=== PATIENT | male | born 2000 | race African-American/Black ===

== ENCOUNTER 2019-02-17 08:27 | Emergency (ER) | payer SELFPAY ==
[~2019-02-17] VITALS: Ht 182.9 cm; Wt 88.5 kg
[2019-02-17 08:30] VITALS: BP 116/65
[2019-02-17] MEDS ORDERED: ACETAMINOPHEN 325 MG TAB PO ONE ×2 (08:34→08:45)
[2019-02-17] MEDS ORDERED: cefTRIAXone SOD 1,000 MG VL IM ONE (09:00)
[2019-02-17] MEDS ORDERED: methylPREDNISolone SOD SUCC 125 MG/2 ML VL IM ONE (09:00)
[2019-02-17] MEDS ORDERED: IBUPROFEN 800 MG TAB PO ONE (09:00)
== END 2019-02-17 09:34 | disposition home or self-care (01) ==
LOC: ER 08:27
DX: J03.00 Acute streptococcal tonsillitis, unspecified (principal)
CPT/HCPCS: 96372; 99283; J0696; J2930

== ENCOUNTER 2019-02-19 01:56 | Emergency (ER) | payer SELFPAY ==
[~2019-02-19] VITALS: Ht 182.9 cm; Wt 88.0 kg
[2019-02-19 02:47] VITALS: BP 127/72
[2019-02-19] MEDS ORDERED: DexAMETHasone SOD PHOS 10MG/1ML VIAL INJ IM ONE (05:00)
[2019-02-19] MEDS ORDERED: HYDROcodone-ACET 7.5/325MG TAB PO ONE (05:00)
== END 2019-02-19 05:29 | disposition home or self-care (01) ==
LOC: ER 01:58
DX: J02.0 Streptococcal pharyngitis (principal)
CPT/HCPCS: 96372; 99283; J1100

== ENCOUNTER 2019-02-21 18:34 | Emergency (ER) | payer SELFPAY ==
[~2019-02-21] VITALS: Ht 182.9 cm; Wt 88.0 kg
[2019-02-21] MEDS ORDERED: ACETAMINOPHEN 500 MG TAB PO ONE (19:30)
[2019-02-21] MEDS ORDERED: PIPERACILLIN-TAZOB 3.375GM 100 ML IV ONE (19:30)
[2019-02-21] MEDS ORDERED: SODIUM CHLORIDE 0.9% 1,000 ML IV ONE (19:30)
[2019-02-21 19:32] LABS: Hematocrit 44.8 % (41.0-53.0)
[2019-02-21 19:35] LABS: Mean Corpuscular Hemoglobin 29.4 pg (28.0-32.0); Mean Corpuscular Hgb Conc. 33.5 g/dL (32.0-36.0); Mean Corpuscular Volume 87.7 fL (80.0-100.0); Platelet Count (auto) 249 10^3/uL (140-450); Red Blood Cells 5.11 10^6/uL (4.5-5.90); Red Cell Distribution Width 12.4 % (11.8-14.3); White Blood Cell 10.1 10^3/uL (4.4-10.8)
[2019-02-21 19:39] LABS: Band Neutrophils % (manual) 0; Basophils % (manual) 0 (0.0-2.0); Blast Cells 0; Eosinophils % (manual) 0 (0-7); Metamyelocytes % 0; Myelocytes % 0; Promyelocytes % 0
[2019-02-21 19:46] LABS: Albumin 3.5 g/dL (3.4-5.0); Calcium 8.7 mg/dL (8.5-10.1); Potassium 3.4 mmol/L (3.5-5.1)
[2019-02-21 19:49] LABS: BUN/Creatinine Ratio 13.1; Bilirubin, Total 0.5 mg/dL (0.2-1.0); Total Protein 7.7 g/dL (6.4-8.2)
[2019-02-21 20:09] LABS: Lymphocytes % (manual) 31 (10.0-50.0); Monocytes % (manual) 19 (0-12); Reactive Lymphocytes 1
[2019-02-21] MEDS ORDERED: MORPHINE SULF INJ 2 MG/ML SYRINGE 1ML IV ONE (21:00)
[2019-02-21] MEDS ORDERED: ONDANSETRON HCL 4 MG/2 ML VIAL IV ONE (21:00)
[2019-02-22 01:54] VITALS: BP 123/72
== END 2019-02-22 01:15 | disposition home or self-care (01) ==
LOC: ER 18:34
DX: R07.89 Other chest pain (principal); J06.9 Acute upper respiratory infection, unspecified
CPT/HCPCS: 36415; 71045; 80053; 84484; 85007; 85027; 87040; 87070; 87880; 96365; 96375; 99284; J2270; J2405; J2543

== ENCOUNTER 2023-06-25 10:12 | Inpatient (IN) | payer MEDICAID ==
[~2023-06-25] VITALS: Ht 182.9 cm; Wt 75.1 kg
[2023-06-25] MEDS: SODIUM CHLORIDE 0.9% 1,000 ML IV ONE (11:30)
[2023-06-25 11:52] LABS: Basophils # (auto) 0 10 ^3/uL (0-0.2); Basophils % (auto) 0.2 % (0.0-2.0); Eosinophils # (auto) 0 10 ^3/uL (0-0.8); Eosinophils % (auto) 0.4 % (0.0-7.0); Hemoglobin 16.5 g/dL (13.5-17.5); Lymphocytes # (auto) 1.2 10 ^3/uL (0.4-5.4); Lymphocytes % (auto) 9.7 % (10.0-50.0); Mean Corpuscular Hemoglobin 28.9 pg (28.0-32.0); Mean Corpuscular Hgb Conc. 32.9 g/dL (32.0-36.0); Mean Corpuscular Volume 87.8 fL (80.0-100.0); Monocytes # (auto) 1.5 10 ^3/uL (0-1.3); Monocytes % (auto) 12.6 % (0.0-12.0); Neutrophils # (auto) 9.2 10 ^3/uL (1.6-8.6); Neutrophils % (auto) 77.1 % (37.0-80.0); Nucleated Red Blood Cells % 0.1 %; Red Cell Distribution Width 12.8 % (11.8-14.3); White Blood Cell 11.9 10^3/uL (4.4-10.8)
[2023-06-25 11:56] LABS: Chloride 105 mmol/L (98-107); Potassium 4.1 mmol/L (3.5-5.1); Sodium 138 mmol/L (136-145)
[2023-06-25 11:57] LABS: Anion Gap 10 (5-15); Calcium 9.9 mg/dL (8.7-10.4); Carbon Dioxide 23 mmol/L (20-30)
[2023-06-25 12:02] LABS: BUN/Creatinine Ratio 7.3 (10.0-20.0); Blood Urea Nitrogen 9 mg/dL (9-23); Glucose 108 mg/dL (74-106)
[2023-06-25] MEDS: metroNIDAZOLE 500MG/100ML 100 ML IV ONE (12:27)
[2023-06-25] MEDS: cefTRIAXone 1GM/50ML D5W 50 ML IV ONE (12:27)
[2023-06-25] MEDS: ONDANSETRON HCL 4 MG/2 ML VIAL IV ONE (12:27)
[2023-06-25 12:41] LABS: Urine Bacteria FEW /hpf (None Seen); Urine Blood Negative /uL (Negative); Urine Clarity Clear (Clear); Urine Color Light-Yellow (Yellow); Urine Protein, UAD Negative (Negative); Urine Specific Gravity 1.017 (1.001-1.035); Urine Urobilinogen Normal (Negative); Urine WBC 1 /hpf (0 - 3)
[2023-06-25 12:57] LABS: Amphetamine Screen, Urine Neg (NEGATIVE); Barbiturate Scree,Urine Neg (NEGATIVE); Benzodiazephine Screen, Urine Neg (NEGATIVE); Cocaine Screen, Urine Neg (NEGATIVE)
[2023-06-25 12:58] LABS: Cannabinoid Screen, Urine Neg (NEGATIVE); Opiate Scree,Urine Neg (NEGATIVE); Phencyclidine Screen, Urine Neg (NEGATIVE)
[2023-06-25] MEDS ORDERED: MORPHINE SULFATE INJ 2 MG/ml SYRG IV PRN (15:00)
[2023-06-25] MEDS: SODIUM CHLORIDE 0.9% 1,000 ML IV SCH (15:00)
[2023-06-25] MEDS: PANTOPRAZOLE 40 MG/10 ML VIAL INJ IV ONE (15:00)
[2023-06-25] MEDS: DICYCLOMINE HCL (10MG/ML) 2 ML AMPULE IM ONE (15:00)
[2023-06-25 17:28] VITALS: PULSE 84; RESP 20; O2SAT 96
[2023-06-25] MEDS: DICYCLOMINE HCL 10 MG CAP PO SCH (21:49)
[2023-06-25] MEDS: metroNIDAZOLE 500MG/100ML 100 ML IV SCH (21:49)
[2023-06-25] MEDS: ONDANSETRON HCL 4 MG/2 ML VIAL IV PRN (22:51)
[2023-06-26] MEDS: PANTOPRAZOLE 40 MG/10 ML VIAL INJ IV ONE (03:06)
[2023-06-26 06:17] LABS: Basophils # (auto) 0 10 ^3/uL (0-0.2); Basophils % (auto) 0.2 % (0.0-2.0); Eosinophils # (auto) 0.1 10 ^3/uL (0-0.8); Eosinophils % (auto) 0.9 % (0.0-7.0); Hematocrit 42.6 % (41.0-53.0); Hemoglobin 14.1 g/dL (13.5-17.5); Lymphocytes # (auto) 0.9 10 ^3/uL (0.4-5.4); Lymphocytes % (auto) 7.4 % (10.0-50.0); Mean Corpuscular Hemoglobin 28.9 pg (28.0-32.0); Mean Corpuscular Volume 87.6 fL (80.0-100.0); Monocytes # (auto) 1.3 10 ^3/uL (0-1.3); Monocytes % (auto) 10.6 % (0.0-12.0); Neutrophils # (auto) 9.7 10 ^3/uL (1.6-8.6); Neutrophils % (auto) 80.9 % (37.0-80.0); Red Blood Cells 4.87 10^6/uL (4.5-5.90); Red Cell Distribution Width 12.8 % (11.8-14.3)
[2023-06-26 06:35] LABS: Alanine Aminotransferase 14 U/L (7-40); Albumin 4.1 g/dL (3.2-4.8); Alkaline Phosphatase 82 U/L (46-116); Anion Gap 11 (5-15); Aspartate Aminotransferase 20 U/L (13-40); BUN/Creatinine Ratio 8.1 (10.0-20.0); Bilirubin, Total 0.4 mg/dL (0.2-1.0); Blood Urea Nitrogen 9 mg/dL (9-23); Calcium 8.9 mg/dL (8.7-10.4); Carbon Dioxide 21 mmol/L (20-30); Chloride 108 mmol/L (98-107); Glucose 88 mg/dL (74-106); Potassium 3.8 mmol/L (3.5-5.1); Sodium 140 mmol/L (136-145); Total Protein 6.8 g/dL (5.7-8.2)
[2023-06-26 08:00] VITALS: PULSE 83; RESP 16
[2023-06-26 08:16] VITALS: BP 118/74; PULSE 83; RESP 16; TEMP 97.7; O2SAT 99
[2023-06-26] MEDS ORDERED: PANTOPRAZOLE 40 MG/10 ML VIAL INJ IV SCH (10:00)
[2023-06-26] MEDS: cefTRIAXone 1GM/50ML D5W 50 ML IV SCH (10:05)
[2023-06-26 11:36] VITALS: BP 142/68; PULSE 65; RESP 18; TEMP 98.3; O2SAT 98
[2023-06-26 16:38] VITALS: BP 126/65; PULSE 75; RESP 18; TEMP 98.8; O2SAT 99
[2023-06-26 20:00] VITALS: PULSE 75; RESP 16
[2023-06-26] MEDS: PANTOPRAZOLE 40 MG/10 ML VIAL INJ IV SCH (22:28)
[2023-06-27 06:30] LABS: Hematocrit 42.9 % (41.0-53.0); Hemoglobin 14.2 g/dL (13.5-17.5); Mean Corpuscular Hemoglobin 28.9 pg (28.0-32.0); Mean Corpuscular Hgb Conc. 33.1 g/dL (32.0-36.0); Mean Corpuscular Volume 87.3 fL (80.0-100.0); Red Blood Cells 4.92 10^6/uL (4.5-5.90); Red Cell Distribution Width 12.6 % (11.8-14.3); White Blood Cell 8.4 10^3/uL (4.4-10.8)
[2023-06-27 06:46] LABS: Anion Gap 10 (5-15); Basophils % (manual) 0 (0.0-2.0); Blast Cells 0; Carbon Dioxide 22 mmol/L (20-30); Chloride 109 mmol/L (98-107); Eosinophils % (manual) 0 (0-7); Metamyelocytes % 0; Myelocytes % 0; Potassium 4.1 mmol/L (3.5-5.1); Promyelocytes % 0; Reactive Lymphocytes 0; Sodium 141 mmol/L (136-145)
[2023-06-27 06:47] LABS: Calcium 9.3 mg/dL (8.7-10.4)
[2023-06-27 06:52] LABS: BUN/Creatinine Ratio 5.5 (10.0-20.0); Blood Urea Nitrogen 6 mg/dL (9-23); Glucose 84 mg/dL (74-106)
[2023-06-27 07:18] LABS: Band Neutrophils % (manual) 4; Lymphocytes % (manual) 18 (10.0-50.0); Monocytes % (manual) 24 (0-12); Platelet Estimate Adequate
[2023-06-27 08:00] VITALS: RESP 18; O2SAT 100
[2023-06-27 08:30] VITALS: BP 130/74; PULSE 80; RESP 18; TEMP 98.1
[2023-06-27 09:23] VITALS: BP 130/74; PULSE 80; RESP 18; TEMP 98.2; O2SAT 100
[2023-06-27 11:39] VITALS: BP 123/71; PULSE 69; RESP 18; TEMP 97.8; O2SAT 100
[2023-06-27 17:00] VITALS: BP 146/77; PULSE 64; RESP 18; TEMP 98.2; O2SAT 98
[2023-06-27 21:00] VITALS: BP 117/69; PULSE 69; RESP 16; TEMP 98; O2SAT 100
[2023-06-28 01:00] VITALS: BP 103/54; PULSE 70; RESP 16; TEMP 98; O2SAT 100
[2023-06-28 05:00] VITALS: BP 116/70; PULSE 81; RESP 18; TEMP 97.6; O2SAT 98
[2023-06-28 08:00] VITALS: PULSE 76; RESP 18; O2SAT 98
[2023-06-28 08:06] VITALS: BP 116/70; PULSE 87; RESP 18; TEMP 98.4; O2SAT 99
[2023-06-28] MEDS: OMNIPAQUE 12mg/ml 500ml ORAL SOLUTION PO ONE (09:07)
[2023-06-28 11:43] VITALS: BP 128/75; PULSE 62; RESP 18; TEMP 98.2; O2SAT 99
[2023-06-28] MEDS ORDERED: METR-344 PO (14:36)
[2023-06-28] MEDS ORDERED: LEVO500T91 PO (14:36)
[2023-06-28 16:00] VITALS: BP 126/76; PULSE 60; RESP 18; TEMP 98.4; O2SAT 99
== END 2023-06-28 16:17 | disposition home or self-care (01) | DRG 720 ==
LOC: ER 10:12 → OVERFLOW 19:42 → WEST WING 06-26 06:23
PROVIDERS: ADMIT Nurse Practitioner Family; ATTEND Nurse Practitioner Acute Care
DX: A41.9 Sepsis, unspecified organism (principal); A04.9 Bacterial intestinal infection, unspecified; E11.9 Type 2 diabetes mellitus without complications; E86.0 Dehydration; I88.0 Nonspecific mesenteric lymphadenitis; I10 Essential (primary) hypertension; J45.909 Unspecified asthma, uncomplicated; F17.200 Nicotine dependence, unspecified, uncomplicated
CPT/HCPCS: 36415; 74176; 76705; 80048; 80053; 80307; 81001; 83690; 85007; 85025; 85027; 85048; 87045; 87177; 87427; 87493; 96361; 96365; 96368; 96372; 96375; C9113; G0378; J2405; J3490; J7042